=== PATIENT | male | born 1960 | race Hispanic/Latino ===

== ENCOUNTER 2018-10-03 17:23 | Emergency (ER) | payer OTHER ==
[2018-10-03 17:30] VITALS: TEMP 97.9; O2SAT 95
[2018-10-03] MEDS ORDERED: Phenylephrine 1% Nasal Spray (15 ml) NAS STA (17:38)
[2018-10-03] MEDS ORDERED: Phenylephrine 1% Nasal Spray (15 ml) ONE (17:56)
[2018-10-03 17:58] LABS: BASO # 0.1 K/uL (0.0-0.2); BASO % 0.7 % (0.0-2.0); EOS # 0.1 K/uL (0.0-0.7); EOS % 1.8 % (0.0-4.0); HEMOGLOBIN 14.6 g/dL (12.0-18.0); LYMPH # 1.2 K/uL (1.0-4.3); LYMPH % 15.2 % (20.0-40.0); MEAN CORPUSCULAR HGB CONC 34.8 g/dL (33.0-37.0); MEAN PLATELET VOLUME 7.3 fL (7.2-11.7); MONO # 0.8 K/uL (0.0-0.8); MONO % 10.2 % (0.0-10.0); NEUT # 5.6 K/uL (1.8-7.0); NEUT % 72.1 % (50.0-75.0); NRBC % 0.1 % (0.0-2.0); RBC 4.43 Mil/uL (4.40-5.90); RED CELL DISTRIBUTION WIDTH 12.4 % (11.5-14.5); WHITE BLOOD COUNT 7.7 K/uL (4.8-10.8)
[2018-10-03] MEDS ORDERED: Amoxicillin-Clav 875-125 mg Tab PO STA (18:09)
[2018-10-03 18:18] LABS: PROTHROMBIN TIME 11.3 SECONDS (9.7-12.2)
[2018-10-03 18:20] VITALS: BP 149/93; PULSE 74; RESP 17
--- NOTE | 2018-10-03 18:26 | C.PDOC ---
History Of Present Illness Patient presents to ED for evaluation of epistaxis from left nare than began approx 20 min [employer]. He admits to one prrior episode that required nasal packing. Patient denies headache, dizziness, facial injuries, blood thinner use. PMHX: HTN Time Seen by Provider: 10/03/18 17:33 Chief Complaint (Nursing): ENT Problem History Per: Patient History/Exam Limitations: None Onset/Duration Of Symptoms: Mins (20) Current Symptoms Are (Timing): Still Present Symptoms Have Been: Continuous Severity: Mild Past Medical History Reviewed: Historical Data, Nursing Documentation, Vital Signs Vital Signs: Last Vital Signs Temp 97.9 F 10/03/18 17:26 Pulse 74 10/03/18 18:19 Resp 17 10/03/18 18:19 BP 149/93 H 10/03/18 18:19 Pulse Ox 95 10/03/18 17:26 - Medical History PMH: HTN Family History: States: No Known Family Hx - Social History Hx Alcohol Use: No Hx Substance Use: No - Immunization History Hx Tetanus Toxoid Vaccination: No Hx Influenza Vaccination: No Hx Pneumococcal Vaccination: No Review Of Systems Constitutional: Negative for: Fever, Chills ENT: Positive for: Other (left nare epistaxis ). Negative for: Ear Pain, Mouth Pain, Throat Pain Cardiovascular: Negative for: Chest Pain Respiratory: Negative for: Cough, Shortness of Breath Gastrointestinal: Negative for: Nausea, Vomiting Neurological: Negative for: Headache, Dizziness Physical Exam - Physical Exam Appears: Well, Non-toxic, No Acute Distress Skin: Normal Color, Warm, Dry, No Pale Eye(s): bilateral: Normal Inspection Nose: No Deformity, No Tenderness, Other (mild epistaxis left nare) Oral Mucosa: Moist Tongue: Normal Appearing Lips: Normal Appearing Throat: Normal, Other (no blood in posterior oropharynx) Cardiovascular: Rhythm Regular Respiratory: Normal Breath Sounds, No Rales, No Rhonchi, No Wheezing Neurological/Psych: Oriented x3, Normal Speech, Normal Cognition Gait: Steady ED Course And Treatment - Laboratory Results Result Diagrams: 10/03/18 17:48 Lab Results: PT 11.3 SECONDS (9.7-12.2) 10/03/18 17:48 INR 1.0 10/03/18 17:48 APTT 29 SECONDS (21-34) 10/03/18 17:48 O2 Sat by Pulse Oximetry: 95 (RA) Pulse Ox Interpretation: Normal Progress Note: 7.5mm rhinorocket inpregnated with neosynephrine and used for packing of left nare (done by me). Patient tolerated well. PO Augmentin given. Disposition Counseled Patient/Family Regarding: Studies Performed, Diagnosis, Need For Followup, Rx Given - Disposition Referrals: Ethan Hudson MD [Staff Provider] - Disposition: HOME/ ROUTINE Disposition Time: 18:30 Condition: STABLE Additional Instructions: FOLLOW UP WITH ENT IN 1-2 DAYS USE MEDICATION DIRECTED RETURN TO ER IF YOU HAVE WORSENING OR CONCERNING SYMPTOMS Prescriptions: Amoxicillin/Clavulanate [Augmentin 875 MG-125 MG] 1 tab PO BID #14 tab Instructions: Nosebleeds (DC) Forms: [facility] (Portuguese) Print Language: [email or web address] - Clinical Impression Clinical Impression: Left-sided epistaxis
[2018-10-03] MEDS ORDERED: Amoxicillin-Clav 875-125 mg Tab PO ONE (18:37)
== END 2018-10-03 18:37 | disposition home or self-care (01) ==
LOC: C.ER 17:23
DX: R04.0 Epistaxis (principal)